=== PATIENT | female | born 1965 | race Caucasian/White ===

== ENCOUNTER 2021-10-29 14:01 | Emergency (ER) | payer SELFPAY ==
[~2021-10-29] VITALS: Ht 177.8 cm; Wt 104.5 kg
[2021-10-29 14:17] VITALS: BP 179/83
[2021-10-29] MEDS ORDERED: dexamethasone sod phosphate 10mg/ml inj IV STA (14:24)
[2021-10-29] MEDS ORDERED: BEBTELOVIMAB 175 MG/2 ML VIAL IV ONE (14:25)
[2021-10-29] MEDS ORDERED: METO-467 PO (15:01)
[2021-10-29] MEDS ORDERED: BUDE180A INH (15:01)
[2021-10-29] MEDS ORDERED: DEXA6TAB6 PO (15:01)
[2021-10-29] MEDS ORDERED: ALBU6.7H9 INH (15:01)
== END 2021-10-29 15:59 | disposition home or self-care (01) ==
LOC: ER 14:02
DX: U07.1 COVID-19 (principal); R05.9 Cough, unspecified; R53.1 Weakness; R51.9 Headache, unspecified; R06.02 Shortness of breath; I10 Essential (primary) hypertension; G89.29 Other chronic pain; Z98.51 Tubal ligation status; Z72.89 Other problems related to lifestyle; Z79.899 Other long term (current) drug therapy
CPT/HCPCS: 71045; 96374; 99284; J1100; M0222; Q0222